=== PATIENT | male | born 1975 | race Caucasian/White ===

== ENCOUNTER 2020-05-20 13:54 | Outpatient (REF) | payer OTHER, SELFPAY | END 2020-05-20 13:55 | disposition home or self-care (01) | LOC: HO.LAB 13:54 | PROVIDERS: PCP Internal Medicine; Visit Provider Internal Medicine | DX: Z20.828 Contact with and (suspected) exposure to other viral communicable diseases (principal) | CPT/HCPCS: C9803; U0003 ==

== ENCOUNTER 2020-06-16 06:43 | Outpatient (REF) | payer OTHER, SELFPAY | END 2020-06-16 06:44 | disposition home or self-care (01) | LOC: HO.LAB 06:43 | PROVIDERS: PCP Internal Medicine; Visit Provider Internal Medicine | DX: Z20.828 Contact with and (suspected) exposure to other viral communicable diseases (principal) | CPT/HCPCS: C9803; U0003 ==

== ENCOUNTER 2022-01-12 13:09 | Outpatient (REF) | payer OTHER, SELFPAY ==
[2022-01-12 16:57] LABS: Hematocrit 41.8 % (42.0-52.0); Mean Corpuscular HGB Conc 33.5 g/dl (31.0-36.0); Mean Corpuscular Hemoglobin 30.6 pg (27.0-33.0); Mean Corpuscular Volume 91.3 fL (80.0-98.0); Mean Platelet Volume 10.1 fL (9.4-12.4); Platelet Count 219 X10*3/uL (160-400); Red Blood Count 4.58 X10*6/uL (4.60-5.80); Red Cell Distribution Width 12.9 % (11.0-16.0); White Blood Count 5.9 X10*3/uL (4.8-10.8)
[2022-01-12 17:03] LABS: Appearance Urine CLEAR; Color Urine YELLOW; Glucose Urine UA NEG (NEG); Leukocyte Esterase Urine NEG (NEG); Nitrite Urine NEG (NEG); Specific Gravity - Urine <= 1.005 (1.005-1.025); Urine Blood TRACE (NEG); Urine Ketones NEG (NEG); Urine Protein NEG (NEG-TRACE)
[2022-01-12 17:09] LABS: Alanine Aminotransferase 34 U/L (0-40); Albumin Level 4.2 g/dL (3.5-5.0); Alkaline Phosphatase 81 U/L (39-117); Anion Gap 12 (12-20); Aspartate Amino Transferase 22 U/L (5-37); Bilirubin Direct 0.3 mg/dL (0.0-0.5); Bilirubin Total 0.9 mg/dL (0.0-1.0); Blood Urea Nitrogen 11 mg/dL (9-16); C Reactive Protein 0.37 mg/dL (< or = 0.50); Calcium 9.4 mg/dL (8.4-10.2); Carbon Dioxide 31 mmol/L (22-29); Chloride 102 mmol/L (96-108); Cholesterol 129 mg/dL; Estimated Glomerular Filt Rate > 60; Glucose Random 84 mg/dL (60-115); HDL Cholesterol 36 mg/dL; LDL Cholesterol Calculated 60 mg/dl; Potassium 4.3 mmol/L (3.3-5.1); Sodium 141 mmol/L (135-145); Total Protein 7.3 g/dL (6.5-8.0); Triglycerides 165 mg/dL
[2022-01-12 17:17] LABS: Squamous Epithelial Cell Urine TRACE /LPF; WBC Urine 0 /HPF (0-4)
[2022-01-12 17:18] LABS: Amorphous Sediment Urine TRACE /LPF
== END 2022-01-12 13:10 | disposition home or self-care (01) ==
LOC: HO.HMGCLDS 13:09
PROVIDERS: PCP Internal Medicine; Visit Provider Internal Medicine
DX: M19.072 Primary osteoarthritis, left ankle and foot (principal); M19.071 Primary osteoarthritis, right ankle and foot
CPT/HCPCS: 36415; 80048; 80061; 80076; 81001; 81003; 85027; 86140

== ENCOUNTER → 2022-03-21 15:08 | Outpatient (REF) | payer OTHER, SELFPAY | LOC: HO.SL 15:08 | PROVIDERS: PCP Internal Medicine; Visit Provider Internal Medicine | DX: G47.33 Obstructive sleep apnea (adult) (pediatric) (principal); G62.9 Polyneuropathy, unspecified | CPT/HCPCS: 95806 ==

== ENCOUNTER 2024-09-16 14:42 | Outpatient (AMB) | payer OTHER, SELFPAY ==
--- NOTE | 2024-09-16 14:47 | AM.OFFWIN_ITS ---
Intake Vital Signs 09/16/24 15:01 Weight 418 lb BP 136/90 H Blood Pressure Location Rt brachial Position Sitting Pulse 68 Pulse Source Pulse Oximeter Pulse Oximetry (%) 96 Oxygen Delivery Method Room Air Intake Visit Reasons: EP LT ear clogged, sob, swelling in feet Patient Tobacco Use Status: Never used Tobacco Allergies lisinopril Allergy (Mild, Verified 09/16/24 15:02) pins and needles toporol Allergy (Uncoded 09/16/24 15:02) pins and needles Do you need a note to return to daycare/school/sports/work: No HPI HPI Comments History of Present Illness Details This is a 49-year-old male with a past medical history of coronary artery disease s/p NSTEMI, hypertension, hyperlipidemia and obstructive sleep apnea not currently treated, presenting for evaluation of left ear discomfort with decreased hearing over the past 2 months that he has been treating with antibiotic eardrops and intermittent swollen feet that he has had for the past 6 months. Patient has not yet followed up with CPAP machine as the sleep test needs to be repeated secondary to his recent weight gain. Patient has not followed up with his primary care provider for the past 1 year. Patient saw his biotechnologist approximately 6 months ago who initiated hydrochlorothiazide for management of his hypertension and lower extremity edema. Patient states he was diagnosed with sleep apnea however has not been able to access his equipment because he has gained weight since the time of the test. He states that he was pulled over in [place] last week because he briefly fell asleep at the wheel of his work truck. [facility] Surgical History (Updated 05/04/22 @ 10:20 by Soledad Gomez CMA) [place] teeth removed Hx of arthroscopic knee surgery History of gallbladder removal Family History (Updated 05/04/22 @ 10:21 by Soledad Gomez CMA) Mother CAD (coronary artery disease) Social History (Updated 05/04/22 @ 10:21 by Soledad Gomez CMA) Household Members Other:: , 3 sons, Housing: House Alcohol intake: never Patient Tobacco Use Status: Never used Tobacco e-Cigarette/Vaping Use: Never Used service: No Current occupational status: employed Cognitive needs: No Hearing needs: No Vision needs: No Review of Systems Const All systems reviewed & are unremarkable except as noted in HPI and below Denies chills, Reports fatigue, Denies fever(s), Denies frequent falls, Denies headache(s), Reports lethargy and Reports stops breathing during sleep Eyes Reports no additional complaints ENT Reports otalgia (left ear discomfort) and Denies headache(s) Card Denies chest pain, Reports pedal edema, Reports leg edema (intermittent) and Reports dyspnea Resp Denies cough and Reports dyspnea GI Reports no additional complaints Reports no additional complaints Musc Reports no additional complaints Skin/Breast Reports system reviewed and no additional complaints, except as documented Neuro Reports no additional complaints, Denies frequent falls and Denies headache(s) Psych Reports no additional complaints Endo Reports fatigue Jer/Lymph Reports no additional complaints Aller/Immun Reports no additional complaints Physical Exam Const General: cooperative, alert and awake Nutritional Appearance: obese morbidly obese Orientation/consciousness: patient oriented x3 Limitations: no limitations HEENT Head: Yes normal to inspection and Yes normocephalic Ears: hearing grossly normal bilaterally, external ears normal, TM's normal bilaterally and EAC's normal (minimal cerumen left ear; no fluid level, no lesions appreciated) Resp Effort & Inspection: normal respiratory effort, no audible wheezes and not tachypneic Auscultation: clear to auscultation bilaterally and diminished lung sounds bilateral throughout Cardio Rate: regular rate Rhythm: regular rhythm Neuro General: patient oriented x3 Extrem Other: pedal edema bilaterally, +1 pitting edema distal lower extremities bilaterally R > L General: Yes no calf tenderness and Yes edema Psych Appearance: grossly normal Mental Status: mental status grossly normal Insight: Good insight present (Psych) Judgement: Good judgement present (Psych) Assessment & Plan Assessment & Plan (1) Lower extremity edema: Comment: Patient has pedal edema and states that he will intermittently wear compression stockings bilaterally, which he is not wearing today. Patient will would likely benefit from an increase of his diuretic medication however will defer to PCP or Cardiology to make these medication changes. Patient is urged to reschedule sleep study so that he may obtain CPAP machine. Code(s): R60.0 - Localized edema Plan: Patient has appointment on Sunday with his primary care provider for further history, examination and medication evaluation. (2) Chronic left ear pain: Comment: There is no clinical evidence of an otitis media, otitis externa or cellulitis. Code(s): H92.02 - Otalgia, left ear; G89.29 - Other chronic pain Plan: No further management is warranted at this time. Coding Level of Care Code Est Pt Level 4 (98603) Diagnoses Lower extremity edema R60.0 Chronic left ear pain H92.02; G89.29 Time Spent (min) 35
[2024-09-16 15:01] VITALS: BP 136/90; PULSE 68; O2SAT 96
== END 2024-09-16 15:39 | disposition home or self-care (01) ==
PROVIDERS: PCP Internal Medicine; Visit Provider Physician Assistant
DX: R60.0 Localized edema (principal); H92.02 Otalgia, left ear; G89.29 Other chronic pain

== ENCOUNTER → 2024-09-16 14:42 | Outpatient (BNVA) | payer OTHER, SELFPAY | PROVIDERS: PCP Internal Medicine; Visit Provider Physician Assistant ==

== ENCOUNTER 2024-09-19 10:35 | Outpatient (AMB) | payer OTHER, SELFPAY ==
--- NOTE | 2024-09-19 10:39 | A.OFFPC_ITS ---
Vital Signs 09/19/24 10:40 Height 6 ft Weight 412 lb BMI 55.9 BP 126/82 Blood Pressure Location Lt brachial Position Sitting Respiration 20 Pulse 82 Pulse Source Pulse Oximeter Temp 99.3 F Temp Source Oral Pulse Oximetry (%) 93 Oxygen Delivery Method Room Air Intake Visit Reasons: Annual PE Intake Note: Pt is here today for PE. Allergies lisinopril Allergy (Mild, Verified 09/19/24 10:41) pins and needles atorvastatin Adverse Reaction (Intermediate, Verified 09/19/24 11:19) metalic taste toporol Allergy (Uncoded 09/19/24 10:41) pins and needles Medication List - Last Reconciled 09/19/24 by Natasha Sheffield MD albuterol 90 mcg/actuation mcg inhalation albuterol sulfate 90 mcg/actuation (ProAir HFA) 2 puffs inhalation Q6H PRN amlodipine 10 mg PO DAILY aspirin (Adult Low Dose Aspirin) 81 mg PO DAILY carvedilol 12.5 mg PO BID clopidogrel 75 mg PO DAILY hydrochlorothiazide 25 mg PO DAILY Tobacco use date assessed: 09/19/24 Dental Screening Dental Screen Date: 09/19/24 Did you have a dental visit in the last 12 months?: Yes Did you have a dental problem in the last 6 months where you did not have access to dental care?: No Was dental information given to patient?: Patient has dentist HPI Annual PE HPI Details Patient presents for a physical. He has not been seen for 3 years. Patient gain over the 100 lb over the last 3 years. He reports episodes of feeling out of breath with physical activity, having onrestful sleep and daytime fatigue and somnolence, having episodes of falling asleep while driving a car. Patient has been seen by [facility] computer hardware engineer for hypertension hyperlipidemia coronary artery disease status post stent 2021. Patient has not been compliant taking statin or fenofibrate because he is afraid of long-term effect on his memory. [facility] Surgical History [place] teeth removed Hx of arthroscopic knee surgery History of gallbladder removal Family History Mother CAD (coronary artery disease) Social History Household Members Other:: , 3 sons, Housing: House Alcohol intake: never Patient Tobacco Use Status: Never used Tobacco e-Cigarette/Vaping Use: Never Used service: No Current occupational status: employed Cognitive needs: No Hearing needs: No Vision needs: No Questionnaire PHQ-9 Over the last 2 weeks, how often have you been bothered by any of the following problems? 1. Little interest or pleasure in doing things: not at all 2. Feeling down, depressed, or hopeless: not at all 3. Trouble falling or staying asleep, or sleeping too much: not at all 4. Feeling tired or having little energy: not at all 5. Poor appetite or overeating: not at all 6. Feeling bad about yourself - or that you are a failure or have let yourself or your family down: not at all 7. Trouble concentrating on things, such as reading the newspaper or watching television: not at all 8. Moving or speaking so slowly that other people could have noticed. Or the opposite - being so fidgety or restless that you have been moving around a lot more than usual: not at all 9. Thoughts that you would be better off or of hurting yourself in some way: not at all Total score: 0 Depression Screening Interpretation: Negative Depression Screening Done: Yes 49662 - PHQ-9 Billing: Yes Source: Developed by Drs. Shane Rodriguez, Harper Jalloh, Tj Austin and colleagues, with an educational selena from [employer]. Thrive Questionnaire Date Thrive assessed: 09/19/24 I am a: Patient What is your living situation today?: I have a steady place to live Within the past 12 months, did the food you bought not last and you didn't have the money to get more?: Never true Within the past 12 months, did you worry whether your food would run out before you got money to buy more?: Never true Do you have trouble paying for medicines?: No Do you have trouble getting transportation to medical appointments?: No Do you have trouble paying your heating and electricity bill?: No Do you have trouble taking care of your child, family member or friend?: No Do you have trouble with day-to-day activities such as bathing, preparing meals, shopping, managing finances, etc.?: No Are you currently unemployed and looking for a job?: No Are you interested in more education?: No Please select the resources that you would like help with: None THRIVE Score: 0 AUDIT C Alcohol Use Questionnaire (AUDIT-C) 1. How often do you have a drink containing alcohol?: Never 3. How often do you have six or more drinks on one occasion?: Never Total Score: 0 DINA-7 AMB Questionnaire DINA-7 Date DINA - 7 assessed: 09/19/24 Feeling nervous, anxious, or on edge: 0 = Not at all Not being able to stop or control worryin = Not at all Worrying too much about different things: 0 = Not at all Trouble relaxin = Not at all Being so restless that it is hard to sit still: 0 = Not at all Becoming easily annoyed or irritable: 0 = Not at all Feeling afraid as if something awful might happen: 0 = Not at all Total DINA-7 score (0-4 normal; 5-9 mild; 10-14 moderate; 15-21 severe): 0 Source: Developed by Drs. Shane Rodriguez, Harper Jalloh, Tj Austin and colleagues, with an educational selena from [employer]. DINA-7 Assessment Billing DINA-7 Assessment Tool: DINA-7 Assessment 48414 Review of Systems Const All systems reviewed & are unremarkable except as noted in HPI and below Eyes Reports no additional complaints ENT Reports no additional complaints Card Reports no additional complaints Resp Reports no additional complaints GI Reports no additional complaints Reports no additional complaints Physical exam (Primary Care) Vital Signs: Last Vital Signs Temp 99.3 F 09/19/24 10:40 Pulse 82 09/19/24 10:40 Resp 20 09/19/24 10:40 BP 126/82 09/19/24 10:40 Pulse Ox 93 09/19/24 10:40 Oxygen Delivery Method Room Air 09/19/24 10:40 BMI result Body Mass Index 55.9 Tobacco/Smoking Status: Tobacco use Status Tobacco use date assessed 09/19/24 09/19/24 10:47 Patient Tobacco Use Status Never used Tobacco 09/19/24 10:47 e-Cigarette/Vaping Use Never Used 09/19/24 10:47 PHQ-9: PHQ-9 Score PHQ-9: Total score 0 09/19/24 11:34 Depression Screening Interpretation: Negative Thrive Assessment: Date of Thrive Assessment Date Thrive assessed 09/19/24 09/19/24 10:47 Const General: no acute distress HENMT Head: Yes normal to inspection Ears: hearing grossly normal bilaterally Mouth: Normal oral and palatal mucosa present Eyes General: appearance normal, both eyes and all related structures Neck Neck: Yes no lymphadenopathy and Yes supple Resp Effort & Inspection: normal respiratory effort Auscultation: clear to auscultation bilaterally Cardio Rhythm: regular rhythm Heart sounds: S1 normal heart sound present and S2 normal heart sound present GI Inspection: Yes normal to inspection Palpation (GI): Soft to palpation Percussion: Yes normal to percussion Auscultation: normal bowel sounds Coding Level of Care Code Est Pt Prev Care 40-64y(69259) Diagnoses Sleep apnea G47.30 Hypoxia R09.02 CAD (coronary artery disease) I25.10 CHF (congestive heart failure) I50.9 Morbid obesity E66.01 Hyperlipidemia E78.5 Additional Codes DINA-7 Assessment Billing - DINA-7 Assessment Tool: DINA-7 Assessment 63078 ([id number]) PHQ-9 - 40335 - PHQ-9 Billing: Yes ([id number]) Assessment & Plan Assessment & Plan (1) Sleep apnea: Code(s): G47.30 - Sleep apnea, unspecified Category: Medical Plan: Obtain sleep study with titration as soon as possible. (2) Hypoxia: Code(s): R09.02 - Hypoxemia Category: Medical Plan: Check sleep study to assess for nocturnal hypoxia and need for supplemental O2 (3) CAD (coronary artery disease): Comment: s/p ME, , RCA BARBER, f/u [facility] cardiology Code(s): I25.10 - Atherosclerotic heart disease of [place] coronary artery without angina pectoris Category: Medical Plan: Continue current medications obtain echocardiogram. The need for taking statins to prevent recurrent ME or CVA discussed with the patient. He will return for fasting blood work (4) CHF (congestive heart failure): Code(s): I50.9 - Heart failure, unspecified Category: Medical Plan: Obtain echocardiogram (5) Morbid obesity: Code(s): E66.01 - Morbid (severe) obesity due to excess calories Category: Medical Plan: Decreasing caloric intake increasing physical activity discussed with the patient he is not interested in trying GLP 1 agonist. Patient will be referred to weight management clinic for nutritional counseling. He is not interested in surgical treatment of his morbid obesity (6) Hyperlipidemia: Comment: Patient refuses to take statins because of concern of dementia Code(s): E78.5 - Hyperlipidemia, unspecified Category: Medical Plan: As above Orders: Orders Complete Blood Count Auto Diff Today E66.01 - Morbid (severe) obesity due to excess calories, I50.9 - Heart failure, unspecified Lipid Panel Today E66.01 - Morbid (severe) obesity due to excess calories, I50.9 - Heart failure, unspecified UA w Microscopic Today E66.01 - Morbid (severe) obesity due to excess calories, I50.9 - Heart failure, unspecified RT PSG in-lab sleep titration Today G47.30 - Sleep apnea, unspecified, R09.02 - Hypoxemia CA echo transthoracic complete Today I25.10 - Atherosclerotic heart disease of [place] coronary artery without angina pectoris, I50.9 - Heart failure, unspecified Comprehensive [place]. Panel Fast Today E66.01 - Morbid (severe) obesity due to excess calories, I50.9 - Heart failure, unspecified PSA,Total (Free>4and<10) Today E66.01 - Morbid (severe) obesity due to excess calories, I50.9 - Heart failure, unspecified Testosterone, Free/Total Today E66.01 - Morbid (severe) obesity due to excess calories, I50.9 - Heart failure, unspecified B Type Natriuretic Peptide Today E66.01 - Morbid (severe) obesity due to excess calories, I50.9 - Heart failure, unspecified H pylori Ag Stool Today E66.01 - Morbid (severe) obesity due to excess calories, I50.9 - Heart failure, unspecified Referrals Medical Weight Management Referral E66.01 - Morbid (severe) obesity due to excess calories Medications: New ketoconazole 2% 1 appl topical DAILY 60 grams 2RF
[2024-09-19 10:40] VITALS: BP 126/82; PULSE 82; RESP 20; TEMP 37.4; O2SAT 93; BMI 55.9
== END 2024-09-19 11:59 | disposition home or self-care (01) ==
PROVIDERS: PCP Internal Medicine; Visit Provider Internal Medicine
DX: Z00.00 Encounter for general adult medical examination without abnormal findings (principal); I50.9 Heart failure, unspecified; E66.01 Morbid (severe) obesity due to excess calories; Z68.43 Body mass index [BMI] 50.0-59.9, adult; G47.30 Sleep apnea, unspecified; R09.02 Hypoxemia; I25.10 Atherosclerotic heart disease of native coronary artery without angina pectoris; E78.5 Hyperlipidemia, unspecified

== ENCOUNTER → 2024-09-19 10:35 | Outpatient (BNVA) | payer OTHER, SELFPAY | PROVIDERS: PCP Internal Medicine; Visit Provider Internal Medicine | DX: Z00.00 Encounter for general adult medical examination without abnormal findings (principal); G47.30 Sleep apnea, unspecified; R09.02 Hypoxemia; I25.10 Atherosclerotic heart disease of native coronary artery without angina pectoris; I50.9 Heart failure, unspecified; E78.5 Hyperlipidemia, unspecified; E66.01 Morbid (severe) obesity due to excess calories; Z68.43 Body mass index [BMI] 50.0-59.9, adult | CPT/HCPCS: 96127 ==

== ENCOUNTER → 2024-10-08 11:16 | Outpatient (REF) | payer OTHER, SELFPAY ==
--- NOTE | 2024-10-08 11:19 | CA_ITS ---
Transthoracic Echocardiogram Patient (Last, First, Middle): Raoul Zavaleta, Gender: Male Date of : 1975 Age: 49 Procedure Date: 10/08/2024 Procedure Type: Transthoracic Echocardiogram Location: OP Height: 182.88 cm Weight: 185.98 kg BSA: 2.89 m2 Heart Rate: bpm BP: 126 / 82 mmHg Cake Inspector: CP/YR Referring MD: Natasha Sheffield MD Bottom Brusher: Filippo Daniel MD Symptoms: I25.10 - Atherosclerotic heart disease of [place] coronary artery without... Study Quality: Poor/Contrast ECG Rhythm: Sinus Conclusions: - 1. Technically limited study despite use of contrast agent 2. Normal LV ejection fraction of 60-65% Findings Procedure Information Contrast agent, definity, is being given per protocol without apparent complications. The study quality is limited by patients body habitus. Left Ventricle The left ventricle was not well visualized. The left ventricular systolic function is normal. The visually estimated ejection fraction is between 60 65%. Spectral Doppler is indicative of a normal filling pattern. Right Ventricle The right ventricle was not well visualized. Atria The left atrium was not well visualized. Interatrial shunt cannot be excluded. The right atrium was not well visualized. Aortic Valve The aortic valve was not well visualized. Mitral Valve The mitral valve was not well visualized. Pulmonic Valve The pulmonic valve was not well visualized. Tricuspid Valve The tricuspid valve was not well visualized. Tricuspid regurgitation envelope is inadequate for calculation of right ventricular systolic pressure. Great Vessels The aorta was not well visualized. The pulmonary artery was not well visualized. Venous The inferior vena cava was not well visualized. Pericardium/Pleural The pericardium was not well visualized. Prior Study Comparison No prior study available for comparison. Measurements 2D Linear Measurements LVOT Diam: 2.30 3.0+(-)1.3 cm Mitral Valve MV Pk E: 0.92 MV PK A: 0.78 MV Decel Time: 227.00 E/A: 1.20 E'Lateral: 13.40 E'Medial: 8.16 E/E' Med: 11.30 E/E' Lat: 6.90 PHT: 67.00 MVA PHT: 3.28 Decel Milam: 4.05 Aortic Valve AoV Pk Glenn: 1.78 AoV Mn Glenn: 1.12 AoV VTI: 0.34 AoV Pk Grad: 13.00 Aov Mn Grad: 6.00 MARK Cont.VTI: 2.34 LVOT LVOT Pk Glenn: 0.89 LVOT Mn Glenn: 0.63 LVOT VTI: 0.19 LVOT Pk Grad: 3.00 LVOT Mn Grad: 2.00 LVOT Diam: 2.30 LVOT Area: 4.15 Diastolic Function MV Pk E: 0.92 MV Pk A: 0.78 E/A: 1.20 E'Medial: 8.16 E/E' Med: 11.30 E' Laterial: 13.40 E/E' Lat: 6.90 Right Ventricle TAPSE (mm): 31.10 Tricuspid Valve TR Pk Glenn: 3.18 TR Pk Grad: 40.00 Great Vessels Aorta Ao Asc: 4.30 2.1-3.4 cm Updated in Other Vendor System with Status of Final Filippo Daniel MD electronically signed on 10/08/2024 3:13:37 PM with status of Final
== END ==
LOC: HO.CARD 11:16
PROVIDERS: PCP Internal Medicine; Visit Provider Internal Medicine
DX: I25.10 Atherosclerotic heart disease of native coronary artery without angina pectoris (principal); I50.9 Heart failure, unspecified
CPT/HCPCS: 93306; Q9957

== ENCOUNTER → 2024-10-08 11:19 | Outpatient (BNV) | payer OTHER, SELFPAY | PROVIDERS: PCP Internal Medicine; Visit Provider Internal Medicine Cardiovascular Disease | DX: I25.10 Atherosclerotic heart disease of native coronary artery without angina pectoris (principal) | CPT/HCPCS: 93306 ==

== ENCOUNTER → 2024-10-23 20:45 | Outpatient (REF) | payer OTHER, SELFPAY | LOC: HO.SL 20:45 | PROVIDERS: PCP Internal Medicine; Visit Provider Internal Medicine | DX: R09.02 Hypoxemia (principal); G47.30 Sleep apnea, unspecified | CPT/HCPCS: 95810 ==

== ENCOUNTER → 2024-10-23 21:28 | Outpatient (BNV) | payer OTHER, SELFPAY | PROVIDERS: PCP Internal Medicine; Visit Provider Internal Medicine | DX: G47.33 Obstructive sleep apnea (adult) (pediatric) (principal) | CPT/HCPCS: 95810 ==

== ENCOUNTER 2024-11-20 10:07 | Outpatient (AMB) | payer OTHER, SELFPAY ==
[2024-11-20 10:08] VITALS: BP 136/82; PULSE 82; RESP 20; TEMP 37.1; O2SAT 93; BMI 55.1
--- NOTE | 2024-11-20 10:08 | A.OFFPC_ITS ---
Vital Signs 11/20/24 10:08 Height 6 ft Weight 406 lb BMI 55.1 BP 136/82 Blood Pressure Location Rt brachial Position Sitting Respiration 20 Pulse 82 Pulse Source Pulse Oximeter Temp 98.8 F Temp Source Oral Pulse Oximetry (%) 93 Oxygen Delivery Method Room Air Intake Visit Reasons: 2m f/u Intake Note: Pt is here today for 2 month follow up visit. Allergies lisinopril Allergy (Mild, Verified 11/20/24 10:11) pins and needles atorvastatin Adverse Reaction (Intermediate, Verified 11/20/24 10:11) metalic taste [id number] Reductase Inhibitor Adverse Reaction (Intermediate, Verified 11/20/24 10:47) muscle weakness toporol Allergy (Uncoded 11/20/24 10:11) pins and needles Medication List - Last Reconciled 11/20/24 by Natasha Sheffield MD albuterol 90 mcg/actuation mcg inhalation albuterol sulfate 90 mcg/actuation (ProAir HFA) 2 puffs inhalation Q6H PRN amlodipine 10 mg PO DAILY aspirin (Adult Low Dose Aspirin) 81 mg PO DAILY carvedilol 12.5 mg PO BID clopidogrel 75 mg PO DAILY CPAP (CPAP Machine/Device) Bilevel with pressure 22/15 cm of water full medium size mask and heated humidification hydrochlorothiazide 25 mg PO DAILY ketoconazole 2% 1 appl topical DAILY Tobacco use date assessed: 09/19/24 Dental Screening Dental Screen Date: 09/19/24 HPI 2m f/u HPI Details Patient presents for the follow-up of hypertension severe obesity and obstructive sleep apnea. Patient had a sleep study consistent with severe obstructive sleep apnea and is in the process of getting CPAP. She is established with a hotel engineer for coronary artery disease hypertension is cont rolled on current medications. Patient is intolerant to statin but has not tried PCSK9 inhibitors PFSH Medical History (Updated 11/20/24 @ 15:38 by Natasha Sheffield MD) Sleep apnea CAD (coronary artery disease) CHF (congestive heart failure) Morbid obesity Hyperlipidemia Surgical History [place] teeth removed Hx of arthroscopic knee surgery History of gallbladder removal Family History Mother CAD (coronary artery disease) Social History Household Members Other:: , 3 sons, Housing: House Alcohol intake: never Patient Tobacco Use Status: Never used Tobacco e-Cigarette/Vaping Use: Never Used service: No Current occupational status: employed Cognitive needs: No Hearing needs: No Vision needs: No Questionnaire Thrive Questionnaire Date Thrive assessed: 09/19/24 DINA-7 AMB Questionnaire DINA-7 Date DINA - 7 assessed: 09/19/24 Source: Developed by Drs. Shane Rodriguez, Harper Jalloh, Tj Austin and colleagues, with an educational selena from [employer]. Review of Systems Const All systems reviewed & are unremarkable except as noted in HPI and below ENT Reports no additional complaints Card Reports no additional complaints Resp Reports no additional complaints GI Reports no additional complaints Reports no additional complaints Physical exam (Primary Care) Vital Signs: Last Vital Signs Temp 98.8 F 11/20/24 10:08 Pulse 82 11/20/24 10:08 Resp 20 11/20/24 10:08 BP 136/82 11/20/24 10:08 Pulse Ox 93 11/20/24 10:08 Oxygen Delivery Method Room Air 11/20/24 10:08 BMI result Body Mass Index 55.1 Tobacco/Smoking Status: Tobacco use Status Tobacco use date assessed 09/19/24 11/20/24 10:16 Patient Tobacco Use Status Never used Tobacco 11/20/24 10:16 e-Cigarette/Vaping Use Never Used 11/20/24 10:16 Thrive Assessment: Date of Thrive Assessment Date Thrive assessed 09/19/24 11/20/24 10:16 Const General: no acute distress HENMT Head: Yes normal to inspection Resp Effort & Inspection: normal respiratory effort Auscultation: clear to auscultation bilaterally Cardio Rhythm: regular rhythm Heart sounds: S1 normal heart sound present and S2 normal heart sound present GI Inspection: Yes normal to inspection Palpation (GI): Soft to palpation Percussion: Yes normal to percussion Auscultation: normal bowel sounds Coding Level of Care Code Est Pt Level 4 (65781) Diagnoses Pain in both feet M79.671; M79.672 Hyperlipidemia E78.5 Morbid obesity E66.01 CAD (coronary artery disease) I25.10 Sleep apnea G47.30 Assessment & Plan Assessment & Plan (1) Pain in both feet: Comment: Chronic bilateral feet nocturnal pain Code(s): M79.671 - Pain in right foot; M79.672 - Pain in left foot Category: Medical Plan: Referred to kinesiotherapist check B12 (2) Hyperlipidemia: Comment: Intolerant to statins cause severe muscle weakness and patient refuses to take statins because of concern of dementia Code(s): E78.5 - Hyperlipidemia, unspecified Category: Medical Plan: Hyperlipidemia treatment discussed with the patient. He was advised to discuss trying PCSK9 inhibitor with Cardiology (3) Morbid obesity: Comment: Patient declined GLP 1 agonist 10/2024 Code(s): E66.01 - Morbid (severe) obesity due to excess calories Category: Medical Plan: DECREASING CALORIC INTAKE INCREASING PHYSICAL ACTIVITY DISCUSSED WITH THE PATIENT, he did not follow-up with weight management program (4) CAD (coronary artery disease): Comment: s/p [place], , RCA BARBER, f/u [facility] cardiology Code(s): I25.10 - Atherosclerotic heart disease of [place] coronary artery without angina pectoris Category: Medical Plan: Continue current medications follow-up with the Cardiology (5) Sleep apnea: Comment: severe with hypoxia Code(s): G47.30 - Sleep apnea, unspecified Category: Medical Plan: Patient will be starting CPAP and will be monitored for compliance Orders: Orders Vitamin B12 and Folate Today M79.671 - Pain in right foot, M79.672 - Pain in left foot Referrals Podiatry Referral M79.671 - Pain in right foot, M79.672 - Pain in left foot Medications: New aspirin (Adult Low Dose Aspirin) 81 mg PO DAILY 90 tabs 3RF
== END 2024-11-20 12:29 | disposition home or self-care (01) ==
LOC: HO.HMCC 10:08
PROVIDERS: PCP Internal Medicine; Visit Provider Internal Medicine
DX: E78.5 Hyperlipidemia, unspecified (principal); E66.01 Morbid (severe) obesity due to excess calories; Z68.43 Body mass index [BMI] 50.0-59.9, adult; M79.671 Pain in right foot; M79.672 Pain in left foot; I25.10 Atherosclerotic heart disease of native coronary artery without angina pectoris; G47.30 Sleep apnea, unspecified

== ENCOUNTER 2024-11-20 10:07 | Outpatient (REF) | payer OTHER, SELFPAY ==
[2024-11-20 13:11] LABS: MANUAL DIFF FLAG NO
[2024-11-20 13:23] LABS: Basophils Percent Auto 0.4 % (0-2); Eosinophils Absolute Auto 0.1 X10*3/uL (0.0-0.4); Eosinophils Percent Auto 1.3 % (0-4); Hematocrit 51.3 % (42.0-52.0); Hemoglobin 16.8 g/dl (14.0-18.0); Imm Gran Abs Auto 0.03 X10*3/uL (0.00-0.03); Imm Gran Pct Auto 0.4 % (0.0-0.4); Mean Corpuscular HGB Conc 32.7 g/dl (31.0-36.0); Mean Corpuscular Hemoglobin 30.9 pg (27.0-33.0); Mean Corpuscular Volume 94.3 fL (80.0-98.0); Mean Platelet Volume 10.2 fL (9.4-12.4); Monocytes Absolute Auto 0.5 X10*3/uL (0.1-1.2); Monocytes Percent Auto 7.2 % (2-11); Neutrophils Absolute Auto 4.1 x10*3/uL (2.0-8.3); Neutrophils Percent Auto 60.7 % (45-73); Platelet Count 227 X10*3/uL (160-400); Red Blood Count 5.44 X10*6/uL (4.60-5.80); Red Cell Distribution Width 13.8 % (11.0-16.0); White Blood Count 6.8 X10*3/uL (4.8-10.8)
[2024-11-20 13:33] LABS: Appearance Urine Clear; Color Urine Dark Yellow; Glucose Urine UA Negative (Negative); Leukocyte Esterase Urine Negative (Negative); Nitrite Urine Negative (Negative); PH 5.5 (5.0-9.0); Specific Gravity - Urine 1.025 (1.005-1.025); Urine Blood Negative (Negative); Urine Ketones Trace mg/dL (Negative); Urine Protein Trace mg/dL (Neg-Trace)
[2024-11-20 13:43] LABS: Alanine Aminotransferase 30 U/L (0-40); Albumin Level 4.2 g/dL (3.5-5.0); Alkaline Phosphatase 73 U/L (39-117); Anion Gap 14 (12-20); Aspartate Amino Transferase 27 U/L (5-37); Bilirubin Total 0.5 mg/dL (0.0-1.0); Blood Urea Nitrogen 14 mg/dL (9-16); Calcium 9.9 mg/dL (8.4-10.2); Carbon Dioxide 30 mmol/L (22-29); Chloride 100 mmol/L (96-108); Cholesterol 208 mg/dL (<200); Estimated Glomerular Filt Rate > 60; Glucose Fasting 119 mg/dL (60-99); HDL Cholesterol 36 mg/dL (>40); LDL Cholesterol Calculated 114 mg/dL (<100); Potassium 4.4 mmol/L (3.3-5.1); Sodium 140 mmol/L (135-145); Total Protein 8.2 g/dL (6.5-8.0); Triglycerides 293 mg/dL (<150)
[2024-11-20 13:50] LABS: Bacteria Urine None Seen (None Seen); Granular Casts Urine Present; RBC Urine 0-2 /HPF (0-2); Squamous Epithelial Cell Urine 0-2 /HPF (0-2); WBC Urine 0-5 /HPF (0-5)
[2024-11-20 13:51] LABS: PSA,Total (Free>4and<10) 2.64 ng/mL (0.00-4.00)
[2024-11-20 13:55] LABS: B Type Natriuretic Peptide 14 pg/mL (<100)
[2024-11-20 14:04] LABS: Folate 11.1 ng/mL (> or = 4.0); Vitamin B12 360 pg/mL (200-900)
[2024-11-25 18:58] LABS: Testosterone, Free 29.3 pg/mL (35.0-155.0); Testosterone, Total 145 ng/dL (250-1100)
== END 2024-11-20 10:08 | disposition home or self-care (01) ==
LOC: HO.HMGCLDS 10:07
PROVIDERS: PCP Internal Medicine; Visit Provider Internal Medicine
DX: M79.671 Pain in right foot (principal); M79.672 Pain in left foot; I50.9 Heart failure, unspecified; E66.01 Morbid (severe) obesity due to excess calories; Z12.5 Encounter for screening for malignant neoplasm of prostate
CPT/HCPCS: 36415; 80053; 80061; 81001; 82607; 82746; 83880; 84153; 84402; 84403; 85025

== ENCOUNTER 2025-03-06 10:26 | Outpatient (AMB) | payer OTHER, SELFPAY ==
--- NOTE | 2025-03-06 10:37 | MHC.OFFVIS ---
Intake Visit Reasons: low testosterone Intake Note: pt presents for: new pt low testo urology medications: none blood thinners: aspirin labs done 11/20/24: total testo 145, fr testo 293, total psa 2.64 Paver Layer Required: No Accompanied by: Self / Same As Patient Allergies lisinopril Allergy (Mild, Verified 03/06/25 10:39) pins and needles atorvastatin Adverse Reaction (Intermediate, Verified 03/06/25 10:39) metalic taste Jnrmrou-RDN-YlZ Reductase Inhibitor Adverse Reaction (Intermediate, Verified 03/06/25 10:39) muscle weakness toporol Allergy (Uncoded 03/06/25 10:39) pins and needles HPI Comments Details: Raoul is a pleasant male. He is a patient of Dr. Sheffield. He is seen for the following urologic conditions - male hypogonadism Low testosterone on single lab Background sleep apnea - on CPAP Dyslipidemia with obesity Followed with [facility] cardiology for congestive heart failure Will repeat lab work Likely would benefit from testosterone Given CHF with obstructive sleep apnea and morbid obesity good candidate for GLP 1 Plan repeat baseline hypogonadism labs [facility] Medical History (Updated 12/09/24 @ 14:57 by Naatsha Sheffield MD) Sleep apnea CAD (coronary artery disease) CHF (congestive heart failure) Morbid obesity Hyperlipidemia Surgical History [place] teeth removed Hx of arthroscopic knee surgery History of gallbladder removal Family History Mother CAD (coronary artery disease) Social History Household Members Other:: , 3 sons, Housing: House Alcohol intake: never Patient Tobacco Use Status: Never used Tobacco e-Cigarette/Vaping Use: Never Used service: No Current occupational status: employed Cognitive needs: No Hearing needs: No Vision needs: No Review of Systems Const Denies chills and Denies fever(s) Card Reports no additional complaints and Denies syncope Resp Denies cough GI Denies abdominal pain and Denies heartburn Reports as per HPI and Denies change in libido Neuro Denies syncope Psych Denies change in libido Endo Denies change in libido Physical Exam Const General: cooperative, healthy appearing, comfortable and no acute distress Orientation/consciousness: patient oriented x3 HEENT Face and sinus: Yes normal facial exam Mouth: moist mucous membranes Neck Neck: Yes normal visual inspection, Yes full ROM and Yes trachea midline Chest Chest palpation & inspection: normal inspection of the chest Resp Effort & Inspection: normal respiratory effort, able to speak in complete sentences and no respiratory distress GI Inspection: Yes normal to inspection Back/Spine/Pelvis Cervical Spine: normal cervical lordosis Thoracic/Lumbar Spine: thoracic and lumbar spine normal to inspection Skin General skin exam: no rashes or lesions noted Neuro General: patient oriented x3, gait normal, tone normal and moves all extremities Extrem General: Yes normal to inspection and Yes capillary refill normal Results AMB Urinalysis, Automated UA Leukoctes 15 Mami/uL Last Edit by ROBERT Chavez on 03/06/25 10:48 UA Nitrite Negative Last Edit by ROBERT Chavez on 03/06/25 10:48 UA Urobilinogen 0.2 mg/dL Last Edit by ROBERT Chavez on 03/06/25 10:48 UA Protein 15 mg/dL Last Edit by ROBERT Chavez on 03/06/25 10:48 UA pH 6.0 Last Edit by ROBETR Chavez on 03/06/25 10:48 UA Blood 0 Emery/uL Last Edit by ROBERT Chavez on 03/06/25 10:48 UA Specific Regent 1.015 Last Edit by ROBERT Chavez on 03/06/25 10:48 UA Ketone Negative Last Edit by ROBERT Chavez on 03/06/25 10:48 UA Bilirubin 0 mg/dL Last Edit by ROBERT Chavez on 03/06/25 10:48 UA Glucose 0 mg/dL Last Edit by ROBERT Chavez on 03/06/25 10:48 Assessment & Plan Assessment & Plan (1) Hypogonadism in male: Code(s): E29.1 - Testicular hypofunction Category: Medical Plan Repeat lab work Clomiphene stimulation test Six week follow-up office Orders: Orders Sex Hormone Binding Globulin Today E29.1 - Testicular hypofunction TSH reflex Free T4 Today E29.1 - Testicular hypofunction Lutenizing Hormone Today E29.1 - Testicular hypofunction Follicle Stimulating Hormone Today E29.1 - Testicular hypofunction Testosterone, Free/Total 2 Weeks E29.1 - Testicular hypofunction Lutenizing Hormone 2 Weeks E29.1 - Testicular hypofunction AMB Urinalysis Automated Today Z13.9 - Encounter for screening, unspecified Testosterone, Free/Total Today E29.1 - Testicular hypofunction Estrad Free (Tot Ultra + Free) Today E29.1 - Testicular hypofunction Medications: New clomiphene citrate Take 2 tablets daily for 7 days and complete lab work on day 8 [id number] [facility] GroupGDRX Member [id number] 100 mg (2 x 50 mg) PO DAILY 14 tabs 0RF 7 days E29.1 - Testicular hypofunction, R79.89 - Other specified abnormal findings of blood chemistry Patient Instructions: This note is constructed using voice recognition software. While every effort has been made to ensure accuracy securities compliance examiner errors may have been included. Imaging studies, laboratory and physical exam results were discussed and reviewed in detail. No major barriers to patient understanding were identified. An opportunity to ask questions regarding the treatment plan was provided. All questions were answered. The patient expressed understanding and agreement with the above treatment plan. The patient is aware they should contact our office by phone for worsening of their current condition or the appearance of new urologic symptoms. Compliance is encouraged with any medications and followup testing that is ordered. It is a privilege to participate in the urologic care of your patient. If you have any questions or concerns regarding treatment for the above conditions, or other urologic issues, please do not hesitate to contact me. The office telephone contact is [phone]. Sincerely, Dr Lizandro Mckeon MD, PAZ [facility] - Urology Compassionate Specialist Care for the Genitourinary System Coding Level of Care Code New Pt Level 4 (56242) Diagnoses Hypogonadism in male E29.1
== END 2025-03-06 11:11 | disposition home or self-care (01) ==
LOC: HO.HUSH 10:26
PROVIDERS: PCP Internal Medicine; Visit Provider Urology
DX: Z13.9 Encounter for screening, unspecified (principal); E29.1 Testicular hypofunction
CPT/HCPCS: 99204

== ENCOUNTER 2025-03-06 11:15 | Outpatient (REF) | payer OTHER, SELFPAY ==
[2025-03-07 08:08] LABS: Follicle Stimulating Hormone 6.0 mIU/mL (1.4-12.8)
[2025-03-13 13:28] LABS: Testosterone, Free 38.2 pg/mL (35.0-155.0)
[2025-03-25 03:33] LABS: Estradiol Free 0.44 pg/mL; Estradiol, Ultrasensitive 19 pg/mL (< OR = 29)
== END 2025-03-06 11:16 | disposition home or self-care (01) ==
LOC: HO.10HDL 11:15
PROVIDERS: Visit Provider Urology
DX: E29.1 Testicular hypofunction (principal); R79.89 Other specified abnormal findings of blood chemistry
CPT/HCPCS: 36415; 81003; 82670; 82681; 83001; 83002; 84270; 84402; 84403; 84443

== ENCOUNTER 2025-03-18 11:39 | Outpatient (REF) | payer OTHER, SELFPAY ==
[2025-03-22 17:34] LABS: Testosterone, Free 46.8 pg/mL (35.0-155.0)
== END 2025-03-18 11:40 | disposition home or self-care (01) ==
LOC: HO.10HDL 11:39
PROVIDERS: Visit Provider Urology
DX: E29.1 Testicular hypofunction (principal)
CPT/HCPCS: 36415; 83002; 84402; 84403

== ENCOUNTER 2025-04-14 11:37 | Outpatient (AMB) | payer OTHER, SELFPAY ==
--- NOTE | 2025-04-14 11:42 | MHC.OFFVIS ---
Intake Visit Reasons: 6w/labs Intake Note: pt presents for: 6 wk follow up o urology medications: none blood thinners: aspirin labs done03/18/25 : total testo 226, fr testo 46.8, LH 7.7 Construction Superintendent Required: No Accompanied by: Self / Same As Patient Allergies lisinopril Allergy (Mild, Verified 04/14/25 11:44) pins and needles atorvastatin Adverse Reaction (Intermediate, Verified 04/14/25 11:44) metalic taste Qvggagn-QOV-JvY Reductase Inhibitor Adverse Reaction (Intermediate, Verified 04/14/25 11:44) muscle weakness toporol Allergy (Uncoded 03/06/25 10:39) pins and needles HPI Comments Details: Raoul is a pleasant male. He is a patient of Dr. Sheffield. He is seen for the following urologic conditions - male hypogonadism Low testosterone Did have good response to Clomid We will start in clomiphene 12.5 mg Six-month follow-up Add tadalafil Background sleep apnea - on CPAP Dyslipidemia with obesity Followed with [facility] cardiology for congestive heart failure Hypogonadism Given CHF with obstructive sleep apnea and morbid obesity good candidate for GLP 1 Lab work - 12/07 145, 03/09 152 38 LH 2.9, 04/09 225 46 7.7 Plan repeat baseline hypogonadism labs Clomiphene stimulation test [facility] Medical History (Updated 04/14/25 @ 12:10 by Lizandro Mckeon MD) Sleep apnea CAD (coronary artery disease) CHF (congestive heart failure) Morbid obesity Hyperlipidemia Surgical History [place] teeth removed Hx of arthroscopic knee surgery History of gallbladder removal Family History Mother CAD (coronary artery disease) Social History Household Members Other:: , 3 sons, Housing: House Alcohol intake: never Patient Tobacco Use Status: Never used Tobacco e-Cigarette/Vaping Use: Never Used service: No Current occupational status: employed Cognitive needs: No Hearing needs: No Vision needs: No Review of Systems Const Denies chills and Denies fever(s) Card Reports no additional complaints and Denies syncope Resp Denies cough GI Denies abdominal pain and Denies heartburn Reports as per HPI and Denies change in libido Neuro Denies syncope Psych Denies change in libido Endo Denies change in libido Physical Exam Const General: cooperative, healthy appearing, comfortable and no acute distress Orientation/consciousness: patient oriented x3 HEENT Face and sinus: Yes normal facial exam Mouth: moist mucous membranes Neck Neck: Yes normal visual inspection, Yes full ROM and Yes trachea midline Chest Chest palpation & inspection: normal inspection of the chest Resp Effort & Inspection: normal respiratory effort, able to speak in complete sentences and no respiratory distress GI Inspection: Yes normal to inspection Back/Spine/Pelvis Cervical Spine: normal cervical lordosis Thoracic/Lumbar Spine: thoracic and lumbar spine normal to inspection Skin General skin exam: no rashes or lesions noted Neuro General: patient oriented x3, gait normal, tone normal and moves all extremities Extrem General: Yes normal to inspection and Yes capillary refill normal Assessment & Plan Assessment & Plan (1) 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 - Hypopituitarism Category: Medical Plan Six-month follow-up lab work Orders: Orders Testosterone, Total 5 Months E29.1 - Testicular hypofunction Lutenizing Hormone 5 Months E29.1 - Testicular hypofunction Estrad Free (Tot Ultra + Free) 5 Months E29.1 - Testicular hypofunction Medications: New [enclomiphene] [facility] - Fax Patient Cell Number - [phone] 1 tab PO DAILY 90 tabs 1RF [facility] - Fax 90 days E29.1 - Testicular hypofunction tadalafil [id number] [facility] GroupGDRX Member [id number] 5 mg PO DAILY 90 tabs 1RF 90 days E29.1 - Testicular hypofunction Patient Instructions: This note is constructed using voice recognition software. While every effort has been made to ensure accuracy linseed oil order filler errors may have been included. Imaging studies, laboratory and physical exam results were discussed and reviewed in detail. No major barriers to patient understanding were identified. An opportunity to ask questions regarding the treatment plan was provided. All questions were answered. The patient expressed understanding and agreement with the above treatment plan. The patient is aware they should contact our office by phone for worsening of their current condition or the appearance of new urologic symptoms. Compliance is encouraged with any medications and followup testing that is ordered. It is a privilege to participate in the urologic care of your patient. If you have any questions or concerns regarding treatment for the above conditions, or other urologic issues, please do not hesitate to contact me. The office telephone contact is [phone]. 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
== END 2025-04-14 12:13 | disposition home or self-care (01) ==
LOC: HO.HUSH 11:37
PROVIDERS: PCP Internal Medicine; Visit Provider Urology
DX: E23.0 Hypopituitarism (principal)
CPT/HCPCS: 99214

== ENCOUNTER 2025-06-25 12:49 | Outpatient (AMB) | payer OTHER, SELFPAY ==
[2025-06-25 12:58] VITALS: BP 156/94; PULSE 90; RESP 18; TEMP 37; O2SAT 95; BMI 54.4
--- NOTE | 2025-06-25 12:58 | A.OFFPC_ITS ---
Vital Signs 06/25/25 12:58 Height 6 ft Weight 401 lb BMI 54.4 BP 156/94 H Blood Pressure Location Lt brachial Position Sitting Respiration 18 Pulse 90 Pulse Source Pulse Oximeter Temp 98.6 F Temp Source Oral Pulse Oximetry (%) 95 Oxygen Delivery Method Room Air Intake Visit Reasons: Follow up-update pcp Intake Note: Pt is here today for a follow up visit. Allergies lisinopril Allergy (Mild, Verified 06/25/25 13:01) pins and needles amlodipine Adverse Reaction (Intermediate, Verified 06/25/25 16:14) edema atorvastatin Adverse Reaction (Intermediate, Verified 06/25/25 13:01) metalic taste Afxjchs-FTN-KwO Reductase Inhibitor Adverse Reaction (Intermediate, Verified 06/25/25 13:01) muscle weakness toporol Allergy (Uncoded 06/25/25 13:01) pins and needles Medication List - Last Reconciled 06/25/25 by Natasha Sheffield MD albuterol 90 mcg/actuation mcg inhalation albuterol sulfate 90 mcg/actuation (ProAir HFA) 2 puffs inhalation Q6H PRN amlodipine 10 mg PO DAILY aspirin (Adult Low Dose Aspirin) 81 mg PO DAILY carvedilol 12.5 mg PO BID clomiphene citrate 100 mg (2 x 50 mg) PO DAILY 7 days CPAP (CPAP Machine/Device) Bilevel with pressure 22/15 cm of water full medium size mask and heated humidification [enclomiphene 1 tab PO DAILY 90 days] hydrochlorothiazide 25 mg PO DAILY ketoconazole 2% 1 appl topical DAILY tadalafil 5 mg PO DAILY 90 days Tobacco use date assessed: 06/25/25 Dental Screening Dental Screen Date: 09/19/24 HPI Follow up-update pcp HPI Details Patient presents for the follow-up. He has not been able to work for few months and lost his health insurance. Patient has been taking his regular medications for over a month. He complains of severe bilateral foot pain numbness tingling sensation worse when walking and he reports not being able to work at his current job requiring heavy lifting and standing for many hours. Patient complains of lower extremities swelling worse at the end of the day and when taking amlodipine. Patient has been using a CPAP for severe obstructive sleep apnea regularly and reports waking up more rested. He was evaluated by urologist for hypogonadism. [facility] Medical History (Updated 06/25/25 @ 16:21 by Natasha Sheffield MD) Lower extremity edema Sleep apnea CAD (coronary artery disease) CHF (congestive heart failure) Morbid obesity Hyperlipidemia Surgical History [place] teeth removed Hx of arthroscopic knee surgery History of gallbladder removal Family History Mother CAD (coronary artery disease) Social History Household Members Other:: , 3 sons, Housing: House Alcohol intake: never Patient Tobacco Use Status: Never used Tobacco e-Cigarette/Vaping Use: Never Used service: No Current occupational status: employed Cognitive needs: No Hearing needs: No Vision needs: No Questionnaire Thrive Questionnaire Date Thrive assessed: 04/24/25 I am a: Patient What is your living situation today?: I choose not to answer this question Within the past 12 months, did the food you bought not last and you didn't have the money to get more?: I choose not to answer this question Within the past 12 months, did you worry whether your food would run out before you got money to buy more?: I choose not to answer this question Do you have trouble paying for medicines?: I choose not to answer this question Do you have trouble getting transportation to medical appointments?: I choose not to answer this question Do you have trouble paying your heating and electricity bill?: I choose not to answer this question Do you have trouble taking care of your child, family member or friend?: I choose not to answer this question Do you have trouble with day-to-day activities such as bathing, preparing meals, shopping, managing finances, etc.?: I choose not to answer this question Are you currently unemployed and looking for a job?: I choose not to answer this question Are you interested in more education?: I choose not to answer this question Please select the resources that you would like help with: None Currently or been in a relationship where the following occur: No concerns reported THRIVE Score: 0 AUDIT C Alcohol Use Questionnaire (AUDIT-C) 1. How often do you have a drink containing alcohol?: Never 3. How often do you have six or more drinks on one occasion?: Never Total Score: 0 DINA-7 AMB Questionnaire DINA-7 Date DINA - 7 assessed: 09/19/24 Source: Developed by DrsJake Rodriguez, Harper Jalloh, Tj Austin and colleagues, with an educational selena from [employer] Review of Systems Const All systems reviewed & are unremarkable except as noted in HPI and below Eyes Reports no additional complaints ENT Reports no additional complaints Card Reports no additional complaints Resp Reports no additional complaints GI Reports no additional complaints Reports no additional complaints Physical exam (Primary Care) Vital Signs: Last Vital Signs Temp 98.6 F 06/25/25 12:58 Pulse 90 06/25/25 12:58 Resp 18 06/25/25 12:58 BP 156/94 H 06/25/25 12:58 Pulse Ox 95 06/25/25 12:58 Oxygen Delivery Method Room Air 06/25/25 12:58 BMI result Body Mass Index 54.4 Tobacco/Smoking Status: Tobacco use Status Tobacco use date assessed 06/25/25 06/25/25 13:00 Patient Tobacco Use Status Never used Tobacco 06/25/25 13:00 e-Cigarette/Vaping Use Never Used 06/25/25 12:58 Thrive Assessment: Date of Thrive Assessment Date Thrive assessed 04/24/25 06/25/25 12:58 Currently or been in a relationship where the following occur: No concerns reported Const General: no acute distress HENMT Head: Yes normal to inspection Eyes General: appearance normal, both eyes and all related structures Neck Neck: Yes no lymphadenopathy and Yes supple Resp Effort & Inspection: normal respiratory effort Auscultation: clear to auscultation bilaterally Cardio Rhythm: regular rhythm Heart sounds: S1 normal heart sound present and S2 normal heart sound present GI Inspection: Yes normal to inspection Palpation (GI): Soft to palpation Percussion: Yes normal to percussion Auscultation: normal bowel sounds Neuro Other: There is decreased sensation to monofilament no both feet at mid socks distribution. Sensation to vibration intact in both lower extremities, deep tendon reflexes 1+ bilaterally. Cranial nerves: Yes CN's II-XII intact bilaterally Extrem Other: 3+ pitting edema and chronic venous stasis changes on both lower extremities Coding Level of Care Code Est Pt Level 4 (98190) Diagnoses Peripheral neuropathy G62.9 Hyperlipidemia E78.5 HTN (hypertension) I10 Lower extremity edema R60.0 Sleep apnea G47.30 Hypogonadism in male E29.1 Morbid obesity E66.01 Assessment & Plan Assessment & Plan (1) Peripheral neuropathy: Code(s): G62.9 - Polyneuropathy, unspecified Category: Medical Plan: Obtain vitamin B12 level. Patient is referred to neurologist (2) Hyperlipidemia: Comment: Intolerant to statins cause severe muscle weakness and patient refuses to take statins because of concern of dementia, Code(s): E78.5 - Hyperlipidemia, unspecified Category: Medical Plan: Patient refused any treatment for hyperlipidemia including PCSK 9 inhibitor (3) HTN (hypertension): Code(s): I10 - Essential (primary) hypertension Category: Medical Plan: Patient will restart carvedilol 12.5 mg twice a day and losartan. (4) Lower extremity edema: Comment: Due to venous stasis Code(s): R60.0 - Localized edema Category: Medical Plan: Start furosemide 20 mg daily. Patient was advised to wear compression knee- highs and elevate lower extremities (5) Sleep apnea: Comment: severe with hypoxia, used Cpap, good compliance Code(s): G47.30 - Sleep apnea, unspecified Category: Medical Plan: Continue CPAP (6) Hypogonadism in male: Code(s): E29.1 - Testicular hypofunction Category: Medical Plan: Follow-up with urology (7) Morbid obesity: Comment: Patient declined GLP 1 agonist 10/2024 Code(s): E66.01 - Morbid (severe) obesity due to excess calories Category: Medical Plan: Decreasing caloric intake increasing physical activity and weight loss discussed with the patient follow-up in 1 month with a fasting labs before Orders: Orders Comprehensive [place]. Panel Fast 2 Months E78.5 - Hyperlipidemia, unspecified, I10 - Essential (primary) hypertension, I50.9 - Heart failure, unspecified Lipid Panel 2 Months E78.5 - Hyperlipidemia, unspecified, I10 - Essential (primary) hypertension, I50.9 - Heart failure, unspecified TSH reflex Free T4 2 Months E78.5 - Hyperlipidemia, unspecified, I10 - Essential (primary) hypertension, I50.9 - Heart failure, unspecified UA w Microscopic 2 Months E78.5 - Hyperlipidemia, unspecified, I10 - Essential (primary) hypertension, I50.9 - Heart failure, unspecified Complete Blood Count Auto Diff 2 Months E78.5 - Hyperlipidemia, unspecified, I10 - Essential (primary) hypertension, I50.9 - Heart failure, unspecified Vitamin B12 and Folate 2 Months E78.5 - Hyperlipidemia, unspecified, I10 - Essential (primary) hypertension, I50.9 - Heart failure, unspecified Referrals Neurology Referral G62.9 - Polyneuropathy, unspecified Medications: New carvedilol must administer with a meal/food 12.5 mg PO BID 180 tabs 0RF furosemide (Lasix) 20 mg PO DAILY 90 tabs 0RF losartan 100 mg PO DAILY 90 tabs 0RF Refilled aspirin (Adult Low Dose Aspirin) 81 mg PO DAILY 90 tabs 3RF
== END 2025-06-25 13:54 | disposition home or self-care (01) ==
LOC: HO.HMCC 12:50
PROVIDERS: PCP Internal Medicine; Visit Provider Internal Medicine
DX: G62.9 Polyneuropathy, unspecified (principal); E66.01 Morbid (severe) obesity due to excess calories; Z68.43 Body mass index [BMI] 50.0-59.9, adult; E78.5 Hyperlipidemia, unspecified; I10 Essential (primary) hypertension; R60.0 Localized edema; G47.30 Sleep apnea, unspecified; E29.1 Testicular hypofunction

== ENCOUNTER → 2025-06-25 12:49 | Outpatient (BNVA) | payer OTHER, SELFPAY | PROVIDERS: PCP Internal Medicine; Visit Provider Internal Medicine | DX: R60.0 Localized edema (principal); G62.9 Polyneuropathy, unspecified; I10 Essential (primary) hypertension; G47.30 Sleep apnea, unspecified; E29.1 Testicular hypofunction; E66.01 Morbid (severe) obesity due to excess calories | CPT/HCPCS: 99212 ==

== ENCOUNTER 2025-07-01 13:01 | Outpatient (AMB) | payer OTHER, SELFPAY ==
[2025-07-01 13:03] VITALS: BP 158/92; PULSE 82; O2SAT 95; BMI 53.7
--- NOTE | 2025-07-01 13:03 | MHC.OFFVIS ---
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 Accompanied by: Self / Same As Patient Allergies lisinopril Allergy (Mild, Verified 07/01/25 13:03) pins and needles amlodipine Adverse Reaction (Intermediate, Verified 07/01/25 13:03) edema atorvastatin Adverse Reaction (Intermediate, Verified 07/01/25 13:03) metalic taste [id number] Reductase Inhibitor Adverse Reaction (Intermediate, Verified 07/01/25 13:03) muscle weakness toporol Allergy (Uncoded 06/25/25 13:01) pins and needles Medication List - Last Reconciled 07/01/25 by Hilda Tapia MD albuterol sulfate 90 mcg/actuation (ProAir HFA) 2 puffs inhalation Q6H PRN aspirin (Adult Low Dose Aspirin) 81 mg PO DAILY carvedilol 12.5 mg PO BID CPAP (CPAP Machine/Device) Bilevel with pressure 22/15 cm of water full medium size mask and heated humidification [enclomiphene 1 tab PO DAILY 90 days] furosemide (Lasix) 20 mg PO DAILY ketoconazole 2% 1 appl topical DAILY losartan 100 mg PO DAILY ropinirole ER 2 mg PO BEDTIME tadalafil 5 mg PO DAILY 90 days HPI Comments Details: 49y/o male comes for evaluation of possible neuropathy. He started noticing burning tingling numbness in his celine feet about 4-5 years ago - feet was swollen , he stayed in bed with feet elevated for few days and he improved. About 1 week later he had similar issues and progressively worsened and is constant. He thought it was related to his work where he is on his feet most of the day with heavy boots. Now the pain is constant and could not fall asleep. Massage helps But not sure if movement help. He tried compression socks which did not help.He wakes up in the middle of the night - feels like electric shock like sensation, bug bites etc. It si worse at night. sometime he feels cold or warm and also feels like a vice around the feet. he denies back or neck pain he reports abnormal body jerks that wake him up at night He has [facility] and started CPAP in December 2024 and that has helped some. He is followed up by . [facility] Medical History Lower extremity edema Sleep apnea CAD (coronary artery disease) CHF (congestive heart failure) Morbid obesity Hyperlipidemia Surgical History [place] teeth removed Hx of arthroscopic knee surgery History of gallbladder removal Family History Mother CAD (coronary artery disease) Social History Household Members Other:: , 3 sons, Housing: House Alcohol intake: never Patient Tobacco Use Status: Never used Tobacco e-Cigarette/Vaping Use: Never Used service: No Current occupational status: employed Cognitive needs: No Hearing needs: No Vision needs: No Physical Exam Vital Signs: Last Vital Signs Pulse 82 07/01/25 13:03 BP 158/92 H 07/01/25 13:03 Pulse Ox 95 07/01/25 13:03 Oxygen Delivery Method Room Air 07/01/25 13:03 BMI result Body Mass Index 53.7 Const General: cooperative and comfortable Nutritional Appearance: obese morbidly obese Orientation/consciousness: patient oriented x3 Eyes Pupils: Equal, round and reactive pupils present Neuro Other: Mallampatti grade 4 gait- mild slowness General: patient oriented x3, tone normal, moves all extremities and no focal motor deficits Cranial nerves: Yes Facial sensation intact/muscles of mastication intact, Yes Equal, round and reactive pupils present, Yes Bilaterally intact EOM present, Yes Nystagmus not present, Yes Normal facial strength present, Yes Midline tongue present and Yes Ability to bilaterally elevate shoulders present Cognition (Neuro): normal cognition Gait exam (Neuro): Antalgic gait present Deep tendon reflexes (DTR's): Right triceps reflex intensity grade: 1+, Left triceps reflex intensity grade: 1+, Rt Biceps (C5, C6): 1+, Left biceps reflex intensity grade: 1+, Right brachioradialis reflex intensity grade: 1+, Left brachioradialis reflex intensity grade: 1+, Right patellar reflex intensity grade: 1+, Left patellar reflex intensity grade: 1+, Right ankle reflex intensity grade: 0 and Left ankle reflex intensity grade: 0 Assessment & Plan Assessment & Plan (1) Pain in both feet: Comment: Chronic bilateral feet nocturnal pain ? restless legs syndrome Code(s): M79.671 - Pain in right foot; M79.672 - Pain in left foot Category: Medical (2) Neuropathy: Code(s): G62.9 - Polyneuropathy, unspecified Category: Medical Plan EMG NCS LE Check Vit B 12 Folate Vit D E B6 TSH Ferritin PARUL ANti HU I will trial him on ropinirole XR 2 mg qhs Orders: Orders Homocysteine Today G62.9 - Polyneuropathy, unspecified Erythrocyte Sedimentation Rate Today G62.9 - Polyneuropathy, unspecified HU Antibody Today G62.9 - Polyneuropathy, unspecified Copper, serum Today G62.9 - Polyneuropathy, unspecified Magnesium Today G62.9 - Polyneuropathy, unspecified NE electromyogram (EMG) Today G62.9 - Polyneuropathy, unspecified, M79.671 - Pain in right foot, M79.672 - Pain in left foot NE nerve conduction velocity Today G62.9 - Polyneuropathy, unspecified, M79.671 - Pain in right foot, M79.672 - Pain in left foot Vitamin D 25-OH (D2 and D3) Today G62.9 - Polyneuropathy, unspecified Vitamin B12 and Folate Today G62.9 - Polyneuropathy, unspecified TSH reflex Free T4 Today G62.9 - Polyneuropathy, unspecified Ferritin Today G62.9 - Polyneuropathy, unspecified PARUL Reflex Titer and Pattern Today G62.9 - Polyneuropathy, unspecified Vitamin B6 Today G62.9 - Polyneuropathy, unspecified Vitamin E Today G62.9 - Polyneuropathy, unspecified Folate Today G62.9 - Polyneuropathy, unspecified Medications: New ropinirole ER 2 mg PO BEDTIME 30 tabs 6RF Coding Level of Care Code New Pt Level 4 (07361) Diagnoses Pain in both feet M79.671; M79.672 Neuropathy G62.9
== END 2025-07-01 13:53 | disposition home or self-care (01) ==
LOC: HO.HSMS 13:02
PROVIDERS: PCP Internal Medicine; Visit Provider Psychiatry & Neurology Neurology
DX: M79.671 Pain in right foot (principal); M79.672 Pain in left foot; G62.9 Polyneuropathy, unspecified
CPT/HCPCS: 99204

== ENCOUNTER → 2025-07-01 13:01 | Outpatient (BNVA) | payer OTHER, SELFPAY | LOC: CF 14:09 | PROVIDERS: PCP Internal Medicine; Visit Provider Psychiatry & Neurology Neurology | DX: M79.671 Pain in right foot (principal); M79.672 Pain in left foot; G62.9 Polyneuropathy, unspecified | CPT/HCPCS: 99202 ==

== ENCOUNTER 2025-07-07 10:23 | Outpatient (REF) | payer OTHER, SELFPAY ==
[2025-07-07 11:59] LABS: Magnesium 1.9 mg/dL (1.6-2.6)
[2025-07-07 12:08] LABS: Ferritin 353 ng/mL (20-250)
[2025-07-07 12:28] LABS: Folate 5.5 ng/mL (> or = 4.0); Vitamin B12 482 pg/mL (200-900)
== END 2025-07-07 10:24 | disposition home or self-care (01) ==
LOC: HO.LAB 10:23
PROVIDERS: Psychiatry & Neurology Neurology; PCP Internal Medicine; Visit Provider Internal Medicine Hypertension Specialist
DX: Z01.84 Encounter for antibody response examination (principal); G62.9 Polyneuropathy, unspecified
CPT/HCPCS: 36415; 82306; 82525; 82607; 82728; 82746; 83090; 83735; 84181; 84207; 84443; 84446; 85652; 86038; 86255; 86256